=== PATIENT | female | born 1965 | race Caucasian/White ===

== ENCOUNTER 2017-12-12 08:59 | Outpatient (CLI) | payer OTHER ==
[~2017-12-12 08:59] MED LIST: AMLO5TAB4 PO; HYDR-565 PO; LEVO750T PO; NO HOME MEDS
[2017-12-12 09:02] VITALS: BP 176/114
== END 2017-12-12 10:21 | disposition home or self-care (01) ==
LOC: ORTHO 08:59
PROVIDERS: ATTEND Nurse Practitioner Family
DX: S82.851A Displaced trimalleolar fracture of right lower leg, initial encounter for closed fracture (principal); S82.65XA Nondisplaced fracture of lateral malleolus of left fibula, initial encounter for closed fracture; M79.89 Other specified soft tissue disorders; M25.472 Effusion, left ankle; I10 Essential (primary) hypertension; Z90.49 Acquired absence of other specified parts of digestive tract; X58.XXXA Exposure to other specified factors, initial encounter; Y93.89 Activity, other specified; Y92.89 Other specified places as the place of occurrence of the external cause; Y99.8 Other external cause status
CPT/HCPCS: 73610; 73650; 99215; A6446; A6449; L4360

== ENCOUNTER 2017-12-19 12:41 | Observation (INO) | payer OTHER ==
[2017-12-18 10:27] LABS: BASOPHILS # (AUTO) 0.1 X10'3 (0-0.2); BASOPHILS % (AUTO) 1.3 % (0-1); EOSINOPHILS # (AUTO) 0.1 X10'3 (0-0.9); LYMPHOCYTES # (AUTO) 1.4 X10'3 (1.1-4.8); LYMPHOCYTES % (AUTO) 16.2 % (21-51); MEAN CORPUSCULAR HEMOGLOBIN 28.5 PG (27.0-31.0); MEAN CORPUSCULAR HGB CONC 33.9 % (33.0-36.5); MONOCYTES # (AUTO) 0.3 X10'3 (0-0.9); NEUTROPHILS # (AUTO) 6.5 X10'3 (1.8-7.7); NEUTROPHILS % (AUTO) 77.5 % (42-75); PRE OP HEMATOCRIT 46.2 % (35.0-45.0); PRE OP HEMOGLOBIN 15.6 g/dL (12.0-16.0); PRE OP PLATELET COUNT 354 X10'3 (140-440); RED CELL DISTRIBUTION WIDTH 14.2 % (11.5-14.5)
[2017-12-18 10:52] LABS: ALBUMIN 4.1 G/DL (3.4-5.0); ALBUMIN/GLOBULIN RATIO 1.1 (1.1-1.5); ALKALINE PHOSPHATASE 109 IU/L (46-116); BLOOD UREA NITROGEN 16 MG/DL (7-18); BUN/CREATININE RATIO 18.8 (6.6-38.0); CALCIUM 9.5 MG/DL (8.5-10.1); CHLORIDE 101 MMOL/L (99-107); CREATININE 0.85 MG/DL (0.40-0.90); PRE OP ALT 33 U/L (30-65); PRE OP ANION GAP 7 (8-16); PRE OP AST 22 U/L (10-37); PRE OP BILIRUB, TOTAL 0.5 MG/DL (0.0-1.0); PRE OP GLUCOSE 108 MG/DL (70-104); PRE OP POTASSIUM 3.6 MMOL/L (3.4-5.1); PRE OP SODIUM 136 MMOL/L (135-145); TOTAL CARBON DIOXIDE 28.4 MMOL/L (24-32); TOTAL PROTEIN 7.9 G/DL (6.4-8.2); eGFR 70 ML/MIN
[2017-12-19] VITALS (18 sets, daily range): BP systolic 117–163; BP diastolic 68–106
[~2017-12-19] VITALS: Ht 162.6 cm; Wt 72.3 kg
[~2017-12-19 12:41] MED LIST changes: +AMLO2.5T2 PO; -AMLO5TAB4 PO; +Cefazolin 2GM/50ML dext iso,osmotic IVPB IV ONE; -HYDR-565 PO; +IBUP-1984 PO; -LEVO750T PO; -NO HOME MEDS; +famotidine 20mg tablet PO ONE; +ringers solution, lacted 1,000 ML IV SCH; +scopolamine 1.5mg patch.TD72 TD ONE; +vancomycin inj 1,500 MG in normal saline 300ml IV soln IV ONE
[2017-12-19] MEDS ORDERED: BUPIVAcaine/PF 2.5mg/ml (0.25%) 10ml vial ONE (14:32)
[2017-12-19] MEDS ORDERED: ceFAZolin 1000mg inj ONE (14:32)
[2017-12-19] MEDS ORDERED: cloNIDine hcl/PF 100mcg/ml inj ONE (15:20)
[2017-12-19] MEDS ORDERED: ROPIVAcaine 0.5% (5mg/ml) 30ml vial ONE (15:20)
[2017-12-19] MEDS ORDERED: BUPIVAcaine/PF 7.5mg/ml (0.75%) 10ml vial ONE (15:20)
[2017-12-19] MEDS ORDERED: MIDAZolam 1mg/ml 10ml vial ONE (15:23)
[2017-12-19] MEDS ORDERED: fentaNYL/PF 50MCG/1 ML 2ML syringe ONE (15:24)
[2017-12-19] MEDS ORDERED: ringers solution, lacted 1,000 ML IV SCH (16:37)
[2017-12-19] MEDS ORDERED: fentaNYL/PF 50MCG/1 ML 2ML syringe IV PRN ×2 (16:40)
[2017-12-19] MEDS ORDERED: morphine 4 MG/ML inj SYRINge IV PRN ×2 (16:40)
[2017-12-19] MEDS ORDERED: ondansetron/PF 4mg/2ml inj IV PRN (16:40)
[2017-12-19] MEDS ORDERED: labetalol 20mg/4ml (5mg/ml) syringe IV PRN (16:40)
[2017-12-19] MEDS ORDERED: hydrALAZINE 20mg/ml inj. IV PRN (16:40)
[2017-12-19] MEDS ORDERED: ibuprofen tablet 400 MG TABLET PO PRN (19:35)
[2017-12-19] MEDS ORDERED: oxyCODONE IR 5mg (immed. release) tablet PO PRN (21:05)
[2017-12-19] MEDS: amLODIPine 5mg tablet PO SCH (21:15)
[2017-12-20] MEDS: oxyCODONE IR 5mg (immed. release) tablet PO PRN ×2 (01:59→06:51)
[2017-12-20 02:00] VITALS: BP 141/74
[2017-12-20 06:40] VITALS: BP 127/77
[2017-12-20 08:00] VITALS: BP 129/74
[2017-12-20] MEDS: amLODIPine 5mg tablet PO SCH (08:05)
== END 2017-12-20 10:30 | disposition home or self-care (01) ==
LOC: PAS 12:41 → ORTHO 4S 18:07 → UNDOADMIN 19:14 → ORTHO 4S 19:14
PROVIDERS: ADMIT Orthopaedic Surgery; ATTEND Orthopaedic Surgery
DX: S82.841A Displaced bimalleolar fracture of right lower leg, initial encounter for closed fracture (principal); X58.XXXA Exposure to other specified factors, initial encounter; Y93.89 Activity, other specified; Y92.89 Other specified places as the place of occurrence of the external cause; Y99.8 Other external cause status
CPT/HCPCS: 27814; 36415; 80053; 85025; 93005; 96365; A6449; G0378; J0690; J0735; J2250; J2795; J3010; J3370; J3490; J7120; A7000

== ENCOUNTER 2017-12-26 12:54 | Outpatient (CLI) | payer OTHER ==
[~2017-12-26 12:54] MED LIST changes: -Cefazolin 2GM/50ML dext iso,osmotic IVPB IV ONE; -famotidine 20mg tablet PO ONE; -ringers solution, lacted 1,000 ML IV SCH; -scopolamine 1.5mg patch.TD72 TD ONE; -vancomycin inj 1,500 MG in normal saline 300ml IV soln IV ONE
[2017-12-26 12:56] VITALS: BP 162/98
== END 2017-12-26 13:45 | disposition home or self-care (01) ==
LOC: ORTHO 12:54
PROVIDERS: ATTEND Nurse Practitioner Family
DX: S82.851D Displaced trimalleolar fracture of right lower leg, subsequent encounter for closed fracture with routine healing (principal)
CPT/HCPCS: 73600; 73610; 99213; A6446; A6449

== ENCOUNTER 2017-12-28 15:52 | Emergency (ER) | payer OTHER ==
[~2017-12-28] VITALS: Ht 162.6 cm; Wt 71.0 kg
[2017-12-28] MEDS ORDERED: ketorolac trometh. 30mg/ml inj. IV ONE (16:35)
[2017-12-28] MEDS ORDERED: normal saline 1000ML IV soln IV ONE (16:35)
[2017-12-28 16:54] LABS: BASOPHILS # (AUTO) 0.1 X10'3 (0-0.2); BASOPHILS % (AUTO) 0.5 % (0-1); EOSINOPHILS % (AUTO) 0 % (0-6); HEMATOCRIT 42.2 % (35.0-45.0); HEMOGLOBIN 14.6 g/dl (12.0-16.0); LYMPHOCYTES # (AUTO) 0.3 X10'3 (1.1-4.8); LYMPHOCYTES % (AUTO) 2.2 % (21-51); MEAN CORPUSCULAR HGB CONC 34.7 % (33.0-36.5); MEAN CORPUSCULAR VOLUME 83.6 FL (78-98); MEAN PLATELET VOLUME 7.5 FL (7.4-10.4); MONOCYTES # (AUTO) 0.3 X10'3 (0-0.9); MONOCYTES % (AUTO) 2.6 % (2-12); NEUTROPHILS % (AUTO) 94.7 % (42-75); PLATELET COUNT 303 X10'3 (140-440); RED BLOOD COUNT 5.04 X10'6 (4.20-5.60); RED CELL DISTRIBUTION WIDTH 14.2 % (11.5-14.5); WHITE BLOOD COUNT 11.6 X10'3 (4.5-11.0)
[2017-12-28 17:11] LABS: ALANINE AMINOTRANSFERASE 33 U/L (12-78); ALBUMIN 3.4 G/DL (3.4-5.0); ALKALINE PHOSPHATASE 117 IU/L (46-116); ANION GAP 9 (8-16); ASPARTATE AMINO TRANSFERASE 28 U/L (10-37); BILIRUBIN,TOTAL 0.7 MG/DL (0.1-1.0); BLOOD UREA NITROGEN 11 MG/DL (7-18); BUN/CREATININE RATIO 13.6 (6.6-38.0); CALCIUM 8.8 MG/DL (8.5-10.1); CHLORIDE 100 MMOL/L (99-107); CREATININE 0.81 MG/DL (0.40-0.90); GLUCOSE 175 MG/DL (70-104); POTASSIUM 3.5 MMOL/L (3.5-5.1); SODIUM 134 MMOL/L (135-145); TOTAL PROTEIN 6.9 G/DL (6.4-8.2); eGFR 74 ML/MIN
[2017-12-28] MEDS ORDERED: ondansetron/PF 4mg/2ml inj IV ONE (17:35)
[2017-12-28] MEDS ORDERED: traMADol 50MG tablet PO ONE (18:30)
[2017-12-28 19:17] VITALS: BP 129/68
== END 2017-12-28 19:22 | disposition home or self-care (01) ==
LOC: ER 15:53
DX: M25.571 Pain in right ankle and joints of right foot (principal); R11.2 Nausea with vomiting, unspecified; B34.9 Viral infection, unspecified; I10 Essential (primary) hypertension; Z90.49 Acquired absence of other specified parts of digestive tract; Z88.8 Allergy status to other drugs, medicaments and biological substances; Z98.890 Other specified postprocedural states
CPT/HCPCS: 36415; 80053; 83605; 84145; 85025; 87040; 87077; 87186; 96361; 96374; 96375; 99284; J1885; J2405; J7030

== ENCOUNTER 2018-01-02 12:59 | Outpatient (CLI) | payer OTHER ==
[2018-01-02 12:58] VITALS: BP 145/89
== END 2018-01-02 14:00 | disposition home or self-care (01) ==
LOC: ORTHO 12:59
PROVIDERS: ATTEND Nurse Practitioner Family
DX: S82.851D Displaced trimalleolar fracture of right lower leg, subsequent encounter for closed fracture with routine healing (principal); Z88.8 Allergy status to other drugs, medicaments and biological substances; Z98.890 Other specified postprocedural states; X58.XXXD Exposure to other specified factors, subsequent encounter
CPT/HCPCS: 99214; A4590; A6449

== ENCOUNTER 2018-01-15 14:45 | Outpatient (CLI) | payer OTHER | END 2018-01-15 16:16 | disposition home or self-care (01) | LOC: ORTHO 14:45 | PROVIDERS: ATTEND Nurse Practitioner Family | DX: S82.851G Displaced trimalleolar fracture of right lower leg, subsequent encounter for closed fracture with delayed healing (principal); S82.892G Other fracture of left lower leg, subsequent encounter for closed fracture with delayed healing; Z88.8 Allergy status to other drugs, medicaments and biological substances; Z98.890 Other specified postprocedural states; X58.XXXD Exposure to other specified factors, subsequent encounter | CPT/HCPCS: 73600; 73610 ==

== ENCOUNTER 2018-01-20 14:44 | Outpatient (CLI) | payer OTHER ==
[2018-01-20 14:43] VITALS: BP 129/102
== END 2018-01-20 15:15 | disposition home or self-care (01) ==
LOC: ORTHO 14:44
PROVIDERS: ATTEND Nurse Practitioner Family
DX: S82.851D Displaced trimalleolar fracture of right lower leg, subsequent encounter for closed fracture with routine healing (principal); S82.892D Other fracture of left lower leg, subsequent encounter for closed fracture with routine healing; Z80.8 Family history of malignant neoplasm of other organs or systems; X58.XXXD Exposure to other specified factors, subsequent encounter
CPT/HCPCS: 99213; A6449

== ENCOUNTER 2018-01-22 09:30 | Day surgery (SDC) | payer OTHER ==
[2018-01-22] MEDS ORDERED: LIDOcaine/PRILOcaine 5gm cream TP ONE (11:20)
[2018-01-22] MEDS ORDERED: SULF1TAB49 PO (11:44)
== END 2018-01-22 12:30 | disposition home or self-care (01) ==
LOC: WOUND CARE 09:30
PROVIDERS: ATTEND Surgery
DX: L98.492 Non-pressure chronic ulcer of skin of other sites with fat layer exposed (principal); L72.3 Sebaceous cyst; I10 Essential (primary) hypertension; Z90.49 Acquired absence of other specified parts of digestive tract; Z79.899 Other long term (current) drug therapy
CPT/HCPCS: 97597; A6021; A6206; A6212

== ENCOUNTER 2018-01-29 10:23 | Day surgery (SDC) | payer OTHER ==
[~2018-01-29 10:23] MED LIST changes: +SULF1TAB49 PO
[2018-01-29] MEDS ORDERED: LIDOcaine/PRILOcaine 5gm cream TP ONE (11:31)
[2018-01-29] MEDS ORDERED: mupirocin 2% ointment 22GM ONE (12:09)
== END 2018-01-29 12:14 | disposition home or self-care (01) ==
LOC: WOUND CARE 10:23
PROVIDERS: ATTEND Surgery
DX: L98.492 Non-pressure chronic ulcer of skin of other sites with fat layer exposed (principal); L72.3 Sebaceous cyst; I10 Essential (primary) hypertension; Z90.49 Acquired absence of other specified parts of digestive tract; Z79.899 Other long term (current) drug therapy
CPT/HCPCS: 17250

== ENCOUNTER 2018-02-26 13:57 | Outpatient (CLI) | payer OTHER ==
[2018-02-26 13:58] VITALS: BP 139/79
== END 2018-02-26 14:55 | disposition home or self-care (01) ==
LOC: ORTHO 13:57
PROVIDERS: ATTEND Nurse Practitioner Family
DX: S82.831D Other fracture of upper and lower end of right fibula, subsequent encounter for closed fracture with routine healing (principal); S82.851D Displaced trimalleolar fracture of right lower leg, subsequent encounter for closed fracture with routine healing; S82.892D Other fracture of left lower leg, subsequent encounter for closed fracture with routine healing; M25.471 Effusion, right ankle; M77.31 Calcaneal spur, right foot; I10 Essential (primary) hypertension; Z88.8 Allergy status to other drugs, medicaments and biological substances; X58.XXXD Exposure to other specified factors, subsequent encounter
CPT/HCPCS: 73600; 99213

== ENCOUNTER 2018-03-25 09:32 | Outpatient (CLI) | payer OTHER ==
[2018-03-25 09:30] VITALS: BP 145/81
== END 2018-03-25 10:03 | disposition home or self-care (01) ==
LOC: ORTHO 09:32
PROVIDERS: ATTEND Nurse Practitioner Family
DX: S82.64XD Nondisplaced fracture of lateral malleolus of right fibula, subsequent encounter for closed fracture with routine healing (principal); S82.51XD Displaced fracture of medial malleolus of right tibia, subsequent encounter for closed fracture with routine healing; S82.62XD Displaced fracture of lateral malleolus of left fibula, subsequent encounter for closed fracture with routine healing; M85.88 Other specified disorders of bone density and structure, other site; I10 Essential (primary) hypertension; X58.XXXD Exposure to other specified factors, subsequent encounter
CPT/HCPCS: 73600; 73610; 99213

== ENCOUNTER 2018-04-20 13:28 | Outpatient (CLI) | payer OTHER ==
[2018-04-20 13:54] VITALS: BP 147/98
== END 2018-04-20 14:47 | disposition home or self-care (01) ==
LOC: ORTHO 13:28
PROVIDERS: ATTEND Nurse Practitioner Family
DX: S82.841G Displaced bimalleolar fracture of right lower leg, subsequent encounter for closed fracture with delayed healing (principal); S82.892D Other fracture of left lower leg, subsequent encounter for closed fracture with routine healing; I10 Essential (primary) hypertension; Z72.89 Other problems related to lifestyle; Z88.8 Allergy status to other drugs, medicaments and biological substances; W22.8XXD Striking against or struck by other objects, subsequent encounter
CPT/HCPCS: 73600; 99213

== ENCOUNTER 2018-05-11 14:20 | Outpatient (CLI) | payer OTHER ==
[2018-05-11 14:19] VITALS: BP 129/77
== END 2018-05-11 14:52 | disposition home or self-care (01) ==
LOC: ORTHO 14:20
PROVIDERS: ATTEND Nurse Practitioner Family
DX: S82.851G Displaced trimalleolar fracture of right lower leg, subsequent encounter for closed fracture with delayed healing (principal); S92.001G Unspecified fracture of right calcaneus, subsequent encounter for fracture with delayed healing; M25.471 Effusion, right ankle; M77.31 Calcaneal spur, right foot; I10 Essential (primary) hypertension; Z88.8 Allergy status to other drugs, medicaments and biological substances; Z72.89 Other problems related to lifestyle; W22.8XXD Striking against or struck by other objects, subsequent encounter
CPT/HCPCS: 73600; 99213

== ENCOUNTER 2018-06-01 13:54 | Outpatient (CLI) | payer OTHER ==
[2018-06-01 13:54] VITALS: BP 163/91
== END 2018-06-01 14:42 | disposition home or self-care (01) ==
LOC: ORTHO 13:54
PROVIDERS: ATTEND Nurse Practitioner Family
DX: S82.61XD Displaced fracture of lateral malleolus of right fibula, subsequent encounter for closed fracture with routine healing (principal); M79.89 Other specified soft tissue disorders; I10 Essential (primary) hypertension; Z88.1 Allergy status to other antibiotic agents; X58.XXXD Exposure to other specified factors, subsequent encounter
CPT/HCPCS: 73600; 73610; G0463

== ENCOUNTER 2018-07-09 10:43 | Outpatient (CLI) | payer OTHER ==
[2018-07-09 10:43] VITALS: BP 149/77
== END 2018-07-09 11:32 | disposition home or self-care (01) ==
LOC: ORTHO 10:43
PROVIDERS: ATTEND Nurse Practitioner Family
DX: S82.851D Displaced trimalleolar fracture of right lower leg, subsequent encounter for closed fracture with routine healing (principal); S82.892D Other fracture of left lower leg, subsequent encounter for closed fracture with routine healing; M79.89 Other specified soft tissue disorders; I10 Essential (primary) hypertension; Z88.1 Allergy status to other antibiotic agents; X58.XXXD Exposure to other specified factors, subsequent encounter
CPT/HCPCS: 73610; 99213

== ENCOUNTER 2018-09-03 11:25 | Outpatient (CLI) | payer OTHER | END 2018-09-03 12:51 | disposition home or self-care (01) | LOC: ORTHO 11:25 | PROVIDERS: ATTEND Orthopaedic Surgery | DX: R22.42 Localized swelling, mass and lump, left lower limb (principal); Z98.890 Other specified postprocedural states | CPT/HCPCS: 73600; 99213 ==

== ENCOUNTER → 2018-11-24 | Outpatient (CLI) | payer OTHER | END | disposition home or self-care (01) | LOC: ORTHO 14:45 | PROVIDERS: ATTEND Orthopaedic Surgery | DX: T84.84XA Pain due to internal orthopedic prosthetic devices, implants and grafts, initial encounter (principal); M25.571 Pain in right ankle and joints of right foot; Y83.8 Other surgical procedures as the cause of abnormal reaction of the patient, or of later complication, without mention of misadventure at the time of the procedure; Z96.698 Presence of other orthopedic joint implants | CPT/HCPCS: 73600; G0463 ==

== ENCOUNTER 2023-09-22 15:41 | Outpatient (CLI) | payer OTHER | END 2023-09-22 23:59 | disposition home or self-care (01) | LOC: RAD 15:41 | PROVIDERS: ATTEND Student in an Organized Health Care Education/Training Program | DX: M79.89 Other specified soft tissue disorders (principal); M25.572 Pain in left ankle and joints of left foot | CPT/HCPCS: 73610 ==